=== PATIENT | female | born 1945 | race Caucasian/White ===

== ENCOUNTER 2018-12-13 20:46 | Emergency (ER) | payer MEDICARE, BC ==
[2018-12-13] MEDS ORDERED: Tetan/Diph/Pertus SYR(Tdap)* 0.5 ML SYR(BOOSTRIX) use SYR IM ONE (21:36)
[2018-12-13] MEDS ORDERED: Cephalexin CAP* 500 MG PO ONE (22:32)
--- NOTE | 2018-12-13 22:33 | ED ---
Laceration/Wound HPI - HPI Summary HPI Summary: Complains of laceration to distal portion of ring finger of right hand after trying to remove a pit from an avocado with a knife. Tetanus status unknown. Denies any other pain injury or symptoms. - History of Current Complaint Stated Complaint: LT RING LAC Time Seen by Provider: 12/13/18 21:25 Hx Obtained From: Patient Mechanism of Injury: Sharp/Blunt Trauma Onset/Duration: Lasting Hours Aggravating: Movement Current Severity: Moderate Pain Intensity: 6 Pain Scale Used: 0-10 Numeric Associated Signs & Symptoms: Negative - Allergy/Home Medications Allergies/Adverse Reactions: Allergies Allergy/AdvReac Type Severity Reaction Status Date / Time No Known Allergies Allergy Verified 12/13/18 20:55 PMH/Surg Hx/FS Hx/Imm Hx Endocrine/Hematology History: Denies: Hx Anticoagulant Therapy Cardiovascular History: Denies: Hx Pacemaker/ICD Respiratory History: Reports: Other Respiratory Problems/Disorders - PNA History: Denies: Hx Dialysis Musculoskeletal History: Denies: Hx Osteoporosis, Hx Scoliosis Sensory History: Denies: Hx Eye Prosthesis, Hx Hearing Aid Neurological History: Denies: Hx Headaches, Other Neuro Impairments/Disorders Psychiatric History: Denies: Hx Panic Disorder - Cancer History Hx Chemotherapy: No Hx Radiation Therapy: No - Surgical History Surgery Procedure, Year, and Place: CATARACT BILAT, GALLBLADDER 1984ISH, TONSILECTOMY. bilat knee replacements Infectious Disease History: No Infectious Disease History: Denies: History Other Infectious Disease, Traveled Outside the [place] in Last 30 Days - Family History Known Family History: Positive: Other - cancer - Social History Alcohol Use: Weekly Substance Use Type: Reports: None Smoking Status (MU): Never Smoked Tobacco Review of Systems Constitutional: Negative Eyes: Negative ENT: Negative Cardiovascular: Negative Respiratory: Negative Gastrointestinal: Negative Genitourinary: Negative Musculoskeletal: Negative Skin: Negative Neurological: Negative Psychological: Normal All Other Systems Reviewed And Are Negative: Yes Physical Exam - Summary Physical Exam Summary: Pain is flexion and extension intact to each individual joint of right ring finger. Laceration on pad of the distal portion of right ring finger. No involvement of nailbed. Cap refill immediate. Triage Information Reviewed: Yes Vital Signs On Initial Exam: Initial Vitals Temp Pulse Resp BP Pulse Ox 98.3 F 76 16 170/89 96 12/13/18 20:52 12/13/18 20:52 12/13/18 20:52 12/13/18 20:52 12/13/18 20:52 Vital Signs Reviewed: Yes Appearance: Positive: Well-Appearing Skin: Positive: Warm Head/Face: Positive: Normal Head/Face Inspection Eyes: Positive: Normal Neck: Positive: Supple Respiratory/Lung Sounds: Positive: Clear to Auscultation Cardiovascular: Positive: Normal Abdomen Description: Positive: Nontender Musculoskeletal: Positive: Normal Neurological: Positive: Normal Psychiatric: Positive: Normal AVPU Assessment: Alert - [place] Coma Scale Best Eye Response: 4 - Spontaneous Best Motor Response: 6 - Obeys Commands Best Verbal Response: 5 - Oriented Coma Scale Total: 15 Procedures - Laceration/Wound Repair 1 Location: upper extremity Description: Linear Anesthesia: Digital, 2.0% Length, Depth and Shape: 4cm x .5cm Betadine Prep?: Yes Irrigated w/ Saline (ccs): 300 Laceration/Wound Explored: clean Debridement: minimal Suture Type: Prolene Number of Sutures: 6 Layer Closure?: No Sterile Dressing Applied?: No Diagnostics - Vital Signs Vital Signs Temp Pulse Resp BP Pulse Ox 12/13/18 20:52 98.3 F 76 16 170/89 96 - Laboratory Lab Statement: Any lab studies that have been ordered have been reviewed, and results considered in the medical decision making process. Laceration Repair Course/Dx - Course Course Of Treatment: Complains of laceration to distal portion of ring finger of right hand after trying to remove a pit from an avocado with a knife. Tetanus status unknown. Denies any other pain injury or symptoms. Physical exam:Pain is flexion and extension intact to each individual joint of right ring finger. Laceration on pad of the distal portion of right ring finger. No involvement of nailbed. Cap refill immediate. Vital signs within normal limits. Patient sutured. Rx for Keflex. - Clinical Impression Provider Diagnoses: Laceration Discharge - Sign-Out/Discharge Documenting (check all that apply): Patient Departure Patient Received Moderate/Deep Sedation with Procedure: No - Discharge Plan Condition: Stable Disposition: HOME Prescriptions: Cephalexin CAP* [Keflex CAP*] 500 mg PO TID 5 Days #15 cap Patient Education Materials: Care For Your Stitches (ED), Finger Laceration (ED ) Referrals: Arnoldo Butler MD [Primary Care Provider] - Additional Instructions: Sutures out in 10 days. You may wash with warm running water and soap. Do not submerge wounds underwater. Keep clean and dry and protected. Take antibiotics as directed. Return to the ED for any new or worsening symptoms. - Billing Disposition and Condition Condition: STABLE Disposition: Home
[2018-12-13 22:52] VITALS: BP 175/97
== END 2018-12-13 22:58 | disposition home or self-care (01) ==
LOC: ED 20:46
DX: S61.215A Laceration without foreign body of left ring finger without damage to nail, initial encounter (principal); W26.0XXA Contact with knife, initial encounter; Y92.9 Unspecified place or not applicable
CPT/HCPCS: 12002; 90471; 90715; 99282; A9270-GY